=== PATIENT | male | born 1955 | race Asian ===

== ENCOUNTER 2020-08-11 08:53 | Inpatient (IN) | payer BC ==
[2020-08-11 10:08] LABS: Troponin I 4.313 ng/mL (< 0.028)
[2020-08-11] MEDS ORDERED: Iopamidol 370 76% 100 ML VIAL ONE (10:34)
[2020-08-11] MEDS ORDERED: Nitroglycerin 0.4 MG TAB (25 Tab Bottle) SL PRN (11:20)
[2020-08-11] MEDS ORDERED: Lidocaine 1% (PF) 30 ML VIAL ONE (12:25)
[2020-08-11] MEDS ORDERED: Midazolam HCl 2 mg/2 ml Vial ONE (12:56)
[2020-08-11] MEDS ORDERED: Fentanyl 100 MCG/2 ML VIAL ONE (12:56)
[2020-08-11 13:21] LABS: Troponin I 9.866 ng/mL (< 0.028)
[2020-08-11] MEDS ORDERED: Acetaminophen/Codeine 30-300mg Tablet PO PRN (13:23)
[2020-08-11] MEDS ORDERED: Sodium Chloride 0.9% 200 ML IV PRN (13:23)
[2020-08-11] MEDS ORDERED: Sodium Chloride 0.9% 500 ML IV SCH (13:30)
[2020-08-11] MEDS ORDERED: Communication Order-Pharmacy FS SCH (13:51)
[2020-08-11] MEDS: Famotidine 20 MG TAB PO SCH (20:56)
[2020-08-11 23:41] LABS: SARS-CoV-2 PCR by NAA Not Detected (NotDetected)
[2020-08-12 04:26] LABS: #Eosinphils 0.2 thou/uL (0.0-0.7); #Lymphocytes 2.9 thou/uL (1.20-3.40); #Monocytes 0.7 thou/uL (0.11-0.59); #Neutrophils 4.9 thou/uL (1.40-6.50); %Basophils 0.5 % (0.0-1.0); %Eosinophils 1.9 % (0.0-10.0); %Lymphocytes 33.7 % (21.0-51.0); %Monocytes 8.1 % (0.0-10.0); %Neutrophils 55.8 % (42.0-75.0); Hemoglobin 14.6 g/dL (14.0-18.0); Mean Corpuscular HGB CONC 36.1 g/dL (32.0-36.0); Mean Corpuscular Hemoglobin 33.8 pg (27.0-31.0); Mean Corpuscular Volume 93.8 fL (78.0-98.0); Mean Platelet Volume 8.8 fL (7.4-10.4); Platelet Count 211 thou/uL (130-400); RBC Distribution Width 11.4 % (11.5-14.5); Red Blood Cell (RBC) Count 4.31 mill/uL (4.70-6.10); White Blood Cell (WBC) Count 8.7 thou/uL (4.8-10.8)
[2020-08-12 04:51] LABS: Anion Gap 15 mmol/L (10-20); BUN (Urea Nitrogen) 12 mg/dL (8.4-25.7); Calc. Creatinine Clearance 83 mL/min (70-130); Calcium 8.4 mg/dL (7.8-10.44); Carbon Dioxide 20 mmol/L (23-31); Chloride 106 mmol/L (98-107); Cholesterol 182 mg/dl (< 200 Desired); Glucose 98 mg/dL (80-115); HDL Cholesterol 26 mg/dL (>60 Neg Risk); Sodium 137 mmol/L (136-145); Triglycerides 429 mg/dL (Less than 150)
[2020-08-12] MEDS: Aspirin 325 mg Enteric Coated Tablet PO SCH (09:35)
[2020-08-12] MEDS: Famotidine 20 MG TAB PO SCH ×2 (09:35→20:49)
[2020-08-12] MEDS: Lisinopril 20 MG TAB PO SCH (09:36)
[2020-08-12] MEDS: Enoxaparin Sodium 60 MG/0.6 ML SYRINGE SC SCH (20:49)
[2020-08-12] MEDS: Atorvastatin Calcium 40 MG TAB PO SCH (20:49)
[2020-08-13 04:50] LABS: #Eosinphils 0.2 thou/uL (0.0-0.7); #Lymphocytes 3.1 thou/uL (1.20-3.40); #Monocytes 0.9 thou/uL (0.11-0.59); #Neutrophils 4.9 thou/uL (1.40-6.50); %Basophils 0.4 % (0.0-1.0); %Eosinophils 1.8 % (0.0-10.0); %Monocytes 10.2 % (0.0-10.0); %Neutrophils 53.6 % (42.0-75.0); Hemoglobin 13.4 g/dL (14.0-18.0); Mean Corpuscular HGB CONC 36.4 g/dL (32.0-36.0); Mean Corpuscular Hemoglobin 34.3 pg (27.0-31.0); Mean Corpuscular Volume 94.2 fL (78.0-98.0); Mean Platelet Volume 8.7 fL (7.4-10.4); Platelet Count 199 thou/uL (130-400); RBC Distribution Width 11.5 % (11.5-14.5); Red Blood Cell (RBC) Count 3.92 mill/uL (4.70-6.10); White Blood Cell (WBC) Count 9.1 thou/uL (4.8-10.8)
[2020-08-13 05:10] LABS: Anion Gap 13 mmol/L (10-20); BUN (Urea Nitrogen) 11 mg/dL (8.4-25.7); Calc. Creatinine Clearance 76 mL/min (70-130); Calcium 8.4 mg/dL (7.8-10.44); Carbon Dioxide 24 mmol/L (23-31); Chloride 105 mmol/L (98-107); Glucose 105 mg/dL (80-115); Potassium 3.6 mmol/L (3.5-5.1); Sodium 138 mmol/L (136-145)
[2020-08-13] MEDS ORDERED: Sodium Chloride 0.65% Nasal 44 ML BOT EA NARE PRN (08:06)
[2020-08-13] MEDS ORDERED: Senokot S 8.6-50 MG TAB PO PRN (08:06)
[2020-08-13] MEDS ORDERED: Ondansetron ODT 4 MG TAB PO PRN (08:06)
[2020-08-13] MEDS ORDERED: Bisacodyl 5 MG TAB PO PRN (08:06)
[2020-08-13] MEDS ORDERED: Loratadine 10 MG TAB PO PRN (08:06)
[2020-08-13] MEDS ORDERED: Cepastat Lozenges 1 LOZ PO PRN (08:06)
[2020-08-13] MEDS ORDERED: GUAIFENESIN SF SOLN 200 MG/10 ML UDCUP PO PRN (08:06)
[2020-08-13] MEDS ORDERED: Calcium Carbonate 500 MG ChewTAB PO PRN (08:06)
[2020-08-13] MEDS ORDERED: Ondansetron PF 4 MG/2 ML Vial IVP PRN (08:06)
[2020-08-13] MEDS ORDERED: HYDROcodone/Acetaminophen 5/325 mg Tablet PO PRN (08:06)
[2020-08-13] MEDS ORDERED: hydrALAZINE 20 MG/ML VIAL SLOW IVP PRN (08:06)
[2020-08-13] MEDS ORDERED: Loperamide HCl 2 MG CAP PO PRN (08:06)
[2020-08-13] MEDS ORDERED: Zolpidem Tartrate 5 MG TAB PO PRN (08:06)
[2020-08-13] MEDS: Enoxaparin Sodium 60 MG/0.6 ML SYRINGE SC SCH ×2 (09:28→19:47)
[2020-08-13] MEDS: Aspirin 325 mg Enteric Coated Tablet PO SCH (09:28)
[2020-08-13] MEDS: Lisinopril 20 MG TAB PO SCH (09:29)
[2020-08-13] MEDS: Famotidine 20 MG TAB PO SCH ×2 (09:29→19:47)
[2020-08-13] MEDS: Atorvastatin Calcium 40 MG TAB PO SCH (19:47)
[2020-08-14] MEDS: Lisinopril 20 MG TAB PO SCH (04:47)
[2020-08-14] MEDS: Enoxaparin Sodium 60 MG/0.6 ML SYRINGE SC SCH (07:23)
[2020-08-14] MEDS: Aspirin 325 mg Enteric Coated Tablet PO SCH (07:23)
[2020-08-14] MEDS: Famotidine 20 MG TAB PO SCH (07:23)
[2020-08-14] MEDS ORDERED: Albumin 5% 500 ML ONE (07:23)
[2020-08-14] MEDS ORDERED: CEFAZOLIN 2 GM in Premix Bag 1 BAG IVPB SCH (07:30)
[2020-08-14] MEDS ORDERED: Bupivacaine PF 0.5% 30 ML VIAL ONE (10:00)
[2020-08-14] MEDS ORDERED: Dexamethasone 4 mg/ml Vial ONE (10:00)
[2020-08-14] MEDS ORDERED: EPINEPHrine 1 MG/ML AMP ONE (10:00)
[2020-08-14] MEDS ORDERED: Heparin 10,000 UNITS/1 ML VIAL 30,000 UNITS in Sodium Chloride 0.9% 1,000 ML FS SCH (10:15)
[2020-08-14] MEDS ORDERED: Midazolam HCl 5 mg/5 ml Vial ONE (10:18)
[2020-08-14] MEDS ORDERED: Fentanyl 100 MCG/2 ML VIAL ONE ×2 (10:18→11:45)
[2020-08-14] MEDS ORDERED: Midazolam HCl 2 mg/2 ml Vial ONE (10:18)
[2020-08-14] MEDS ORDERED: Vecuronium 10 MG VIAL ONE ×2 (10:19→11:49)
[2020-08-14] MEDS ORDERED: Dexmedetomidine 200 MCG/2 ML VIAL ONE (10:19)
[2020-08-14] MEDS ORDERED: Heparin 5,000 UNITS/ML VIAL ONE (11:49)
[2020-08-14] MEDS ORDERED: Papaverine 60 MG/2 ML VIAL ONE (11:49)
[2020-08-14] MEDS ORDERED: Lidocaine 2% PF 100 mg/5 ml Syringe ONE (11:49)
[2020-08-14] MEDS ORDERED: Potassium Chloride 60 MEQ/30 ML VIAL ONE (11:49)
[2020-08-14] MEDS ORDERED: Mannitol 12.5 GM/50 ML ONE (11:49)
[2020-08-14] MEDS ORDERED: Dexamethasone 20 MG/5 ML VIAL ONE (11:49)
[2020-08-14] MEDS ORDERED: Protamine Sulfate 250 MG/25 ML VIAL ONE (11:49)
[2020-08-14] MEDS ORDERED: Aminocaproic Acid 5 GM/20 ML VIAL ONE (11:49)
[2020-08-14] MEDS ORDERED: Ondansetron PF 4 MG/2 ML Vial ONE (11:49)
[2020-08-14] MEDS ORDERED: Nitroglycerin 50 MG/250 ML BOT ONE (11:49)
[2020-08-14] MEDS ORDERED: Heparin 30,000 units/30 ml VIAL ONE (11:49)
[2020-08-14] MEDS ORDERED: Cardioplegic Soln 1,000 ML BAG ONE (11:49)
[2020-08-14] MEDS ORDERED: Ketorolac Tromethamine 30 MG/ML VIAL ONE (11:49)
[2020-08-14] MEDS ORDERED: Thrombin 5000 UNITS/5 ML VIAL ONE (11:49)
[2020-08-14] MEDS ORDERED: Calcium Chloride 1 GM/10 ML Abboject SYRINGE ONE (11:49)
[2020-08-14] MEDS ORDERED: Sodium Bicarb 50 MEQ/50 ML Abboject 8.4% SYRINGE ONE (11:49)
[2020-08-14] MEDS ORDERED: Magnesium Sulfate 1 GM/2 ML VIAL ONE (11:49)
[2020-08-14] MEDS ORDERED: hydrALAZINE 20 MG/ML VIAL SLOW IVP PRN (14:48)
[2020-08-14] MEDS ORDERED: Hetastarch 6% 500 ML 500 ML IVPB PRN (14:48)
[2020-08-14] MEDS ORDERED: Mag-Al 1200 mg/1200 mg/30 ML UDCUP PO PRN (14:48)
[2020-08-14] MEDS ORDERED: Acetaminophen 325 MG TAB PO PRN (14:48)
[2020-08-14] MEDS ORDERED: Bisacodyl 10 MG SUPP PR PRN (14:48)
[2020-08-14] MEDS ORDERED: Morphine 2 MG/ML VIAL SLOW IVP PRN (14:48)
[2020-08-14] MEDS ORDERED: Potassium Chloride 20 MEQ/100 ML PREMIX BAG IVPB PRN (14:48)
[2020-08-14] MEDS ORDERED: Ondansetron PF 4 MG/2 ML Vial IVP PRN (14:48)
[2020-08-14] MEDS ORDERED: Nitroglycerin 50 MG/250 ML BOT 250 ML IVPB PRN (14:48)
[2020-08-14] MEDS ORDERED: Bisacodyl 5 MG TAB PO PRN (14:48)
[2020-08-14] MEDS ORDERED: Fentanyl 100 MCG/2 ML VIAL SLOW IVP PRN ×2 (14:48)
[2020-08-14] MEDS ORDERED: Guaifenesin DM 100-10/5 ML UDCUP PO PRN (14:48)
[2020-08-14] MEDS ORDERED: traMADol HCl 50 MG TAB PO PRN (14:48)
[2020-08-14] MEDS ORDERED: D5 1/2 NS w/20 mEq KCL 1,000 ML ONE (14:55)
[2020-08-14] MEDS ORDERED: Magnesium 2 GM/50 ML 2 GM in Premix Bag 1 BAG IVPB SCH (15:00)
[2020-08-14 15:02] LABS: Actual Bicarbonate (HCO3a) 20.5 mEq/L (22-28); Base Excess (BEa) -2.8 mEq/L (-2.0 to +3.0); CO2 Tension 31.4 mmHg (35.0-45.0); Calcium, Ionized (arterial) 1.07 mmol/L (1.12-1.30); Carboxyhemoglobin (COHb) 0.4 gm% (0.0-3.0); Hemoglobin (Hb) 13.8 g/dL (14.0-18.0); O2 Tension (PaO2), arterial 145.7 mmHg (> 80.0); Potassium - ABG Lab 3.74 mmol/L (3.70-5.30); pH, Arterial 7.43 (7.35-7.45)
[2020-08-14 15:04] LABS: Puncture Site Arterial Line
[2020-08-14] MEDS: D5 1/2 NS w/20 mEq KCL 1,000 ML IV SCH (15:15)
[2020-08-14 15:22] LABS: INR-International Normal Ratio 1.2; PTT 33.3 sec (22.9-36.1); Prothrombin Time 15.1 sec (12.0-14.7)
[2020-08-14 15:35] LABS: Anion Gap 15 mmol/L (10-20); BUN (Urea Nitrogen) 9 mg/dL (8.4-25.7); Calc. Creatinine Clearance 87 mL/min (70-130); Calcium 7.6 mg/dL (7.8-10.44); Carbon Dioxide 19 mmol/L (23-31); Chloride 110 mmol/L (98-107); Glucose 172 mg/dL (80-115); Potassium 4.2 mmol/L (3.5-5.1); Sodium 140 mmol/L (136-145)
[2020-08-14 16:03] LABS: Band 23 % (5-11); Hemoglobin 13.5 g/dL (14.0-18.0); Lymphocytes 7 % (21-51); MDiff Complete? YES; Mean Corpuscular HGB CONC 35.2 g/dL (32.0-36.0); Mean Corpuscular Hemoglobin 33.2 pg (27.0-31.0); Mean Corpuscular Volume 94.3 fL (78.0-98.0); Mean Platelet Volume 8.9 fL (7.4-10.4); Monocytes 5 % (0-10); Neutrophil 58 % (42-75); Platelet Count 171 thou/uL (130-400); Platelet Morphology Comment Appears Adequate; RBC Distribution Width 11.3 % (11.5-14.5); RBC Morphology Normal; Reactive Lymphocytes 7 % (0-10); Red Blood Cell (RBC) Count 4.07 mill/uL (4.70-6.10)
[2020-08-14] MEDS: Ketorolac Tromethamine 30 MG/ML VIAL IVP SCH ×2 (18:00→23:55)
[2020-08-14] MEDS: CEFAZOLIN 2 GM in Premix Bag 1 BAG IVPB SCH (20:14)
[2020-08-14] MEDS: Famotidine/PF 20 mg/2ml Vial SLOW IVP SCH (20:46)
[2020-08-14] MEDS: Norepinephrine 8 MG/0.9% NS 250 ML IVPB PRN (20:46)
[2020-08-14 20:47] LABS: Hemoglobin 11.2 g/dL (14.0-18.0)
[2020-08-14 21:01] LABS: Potassium 3.8 mmol/L (3.5-5.1)
[2020-08-14] MEDS: Atorvastatin Calcium 40 MG TAB PO SCH (21:02)
[2020-08-14 23:02] LABS: Actual Bicarbonate (HCO3a) 16.9 mEq/L (22-28); Base Excess (BEa) -4.9 mEq/L (-2.0 to +3.0); Calcium, Ionized (arterial) 1.07 mmol/L (1.12-1.30); Carboxyhemoglobin (COHb) 0.1 gm% (0.0-3.0); Hemoglobin (Hb) 11.8 g/dL (14.0-18.0); Potassium - ABG Lab 3.54 mmol/L (3.70-5.30); pH, Arterial 7.49 (7.35-7.45)
[2020-08-14 23:05] LABS: ALV-art Gradient 71.275 mmHg (0-20); CO2 Tension 22.9 mmHg (35.0-45.0); Puncture Site Arterial Line
[2020-08-15] MEDS: CEFAZOLIN 2 GM in Premix Bag 1 BAG IVPB SCH ×2 (03:32→11:36)
[2020-08-15] MEDS: traMADol HCl 50 MG TAB PO PRN (03:32)
[2020-08-15 03:45] LABS: #Lymphocytes 1.1 thou/uL (1.20-3.40); #Monocytes 1.5 thou/uL (0.11-0.59); #Neutrophils 12.6 thou/uL (1.40-6.50); %Lymphocytes 7.2 % (21.0-51.0); %Monocytes 9.9 % (0.0-10.0); %Neutrophils 82.9 % (42.0-75.0); Hemoglobin 10.7 g/dL (14.0-18.0); Mean Corpuscular HGB CONC 34.9 g/dL (32.0-36.0); Mean Corpuscular Hemoglobin 32.8 pg (27.0-31.0); Platelet Count 156 thou/uL (130-400); RBC Distribution Width 11.3 % (11.5-14.5); Red Blood Cell (RBC) Count 3.28 mill/uL (4.70-6.10); White Blood Cell (WBC) Count 15.2 thou/uL (4.8-10.8)
[2020-08-15 04:09] LABS: Anion Gap 11 mmol/L (10-20); BUN (Urea Nitrogen) 12 mg/dL (8.4-25.7); Calc. Creatinine Clearance 83 mL/min (70-130); Calcium 7.7 mg/dL (7.8-10.44); Carbon Dioxide 24 mmol/L (23-31); Chloride 110 mmol/L (98-107); Glucose 158 mg/dL (80-115); Potassium 3.6 mmol/L (3.5-5.1); Sodium 141 mmol/L (136-145)
[2020-08-15] MEDS: Ketorolac Tromethamine 30 MG/ML VIAL IVP SCH ×4 (06:11→23:20)
[2020-08-15] MEDS: Famotidine/PF 20 mg/2ml Vial SLOW IVP SCH ×2 (09:09→20:20)
[2020-08-15] MEDS: Magnesium 2 GM/50 ML 2 GM in Premix Bag 1 BAG IVPB SCH (09:09)
[2020-08-15] MEDS: Aspirin 325 MG TAB PO SCH (09:09)
[2020-08-15] MEDS: Norepinephrine 8 MG/0.9% NS 250 ML IVPB PRN (11:39)
[2020-08-15] MEDS: D5 1/2 NS w/20 mEq KCL 1,000 ML IV SCH (18:01)
[2020-08-15] MEDS: Atorvastatin Calcium 40 MG TAB PO SCH (20:20)
[2020-08-16 03:31] LABS: #Monocytes 1.3 thou/uL (0.11-0.59); #Neutrophils 7.4 thou/uL (1.40-6.50); %Basophils 0.1 % (0.0-1.0); %Eosinophils 0.1 % (0.0-10.0); %Lymphocytes 25.7 % (21.0-51.0); %Monocytes 10.9 % (0.0-10.0); %Neutrophils 63.2 % (42.0-75.0); Hemoglobin 9.3 g/dL (14.0-18.0); Mean Corpuscular HGB CONC 34.8 g/dL (32.0-36.0); Mean Corpuscular Volume 94.8 fL (78.0-98.0); Mean Platelet Volume 8.9 fL (7.4-10.4); Platelet Count 148 thou/uL (130-400); RBC Distribution Width 11.3 % (11.5-14.5); Red Blood Cell (RBC) Count 2.81 mill/uL (4.70-6.10); White Blood Cell (WBC) Count 11.7 thou/uL (4.8-10.8)
[2020-08-16 03:54] LABS: Anion Gap 11 mmol/L (10-20); BUN (Urea Nitrogen) 17 mg/dL (8.4-25.7); Calc. Creatinine Clearance 87 mL/min (70-130); Calcium 7.5 mg/dL (7.8-10.44); Carbon Dioxide 24 mmol/L (23-31); Chloride 108 mmol/L (98-107); Glucose 136 mg/dL (80-115); Potassium 3.5 mmol/L (3.5-5.1); Sodium 139 mmol/L (136-145)
[2020-08-16] MEDS: Ketorolac Tromethamine 30 MG/ML VIAL IVP SCH ×3 (05:35→18:17)
[2020-08-16] MEDS ORDERED: Hetastarch 6% 500 ML 500 ML IVPB SCH (06:00)
[2020-08-16 06:46] VITALS: BMI 25.2
[2020-08-16] MEDS: Magnesium 2 GM/50 ML 2 GM in Premix Bag 1 BAG IVPB SCH (08:23)
[2020-08-16] MEDS: Famotidine/PF 20 mg/2ml Vial SLOW IVP SCH (08:24)
[2020-08-16] MEDS: Aspirin 325 MG TAB PO SCH (08:24)
[2020-08-16] MEDS ORDERED: Zolpidem Tartrate 5 MG TAB PO PRN (15:04)
[2020-08-16] MEDS ORDERED: Milk Of Magnesia 30 ML UDCUP PO PRN (15:04)
[2020-08-16] MEDS ORDERED: Bisacodyl 5 MG TAB PO PRN (15:04)
[2020-08-16] MEDS ORDERED: diphenhydrAMINE 25 MG CAP PO PRN (15:04)
[2020-08-16] MEDS ORDERED: Mag-Al 1200 mg/1200 mg/30 ML UDCUP PO PRN (15:04)
[2020-08-16] MEDS ORDERED: Mineral Oil ENEMA PR PRN (15:04)
[2020-08-16] MEDS ORDERED: Nitroglycerin 0.4 MG TAB (25 Tab Bottle) SL PRN (15:04)
[2020-08-16] MEDS ORDERED: Bisacodyl 10 MG SUPP PR PRN (15:04)
[2020-08-16] MEDS ORDERED: Guaifenesin DM 100-10/5 ML UDCUP PO PRN (15:04)
[2020-08-16] MEDS: Famotidine 20 MG TAB PO SCH (20:33)
[2020-08-16] MEDS: traMADol HCl 50 MG TAB PO PRN (20:33)
[2020-08-16] MEDS: Atorvastatin Calcium 40 MG TAB PO SCH (20:33)
[2020-08-17] MEDS: Ketorolac Tromethamine 30 MG/ML VIAL IVP SCH ×5 (00:45→19:06)
[2020-08-17] MEDS: Aspirin 325 MG TAB PO SCH (08:55)
[2020-08-17] MEDS: Famotidine 20 MG TAB PO SCH ×2 (08:56→20:37)
[2020-08-17 13:01] LABS: #Eosinphils 0.2 thou/uL (0.0-0.7); #Lymphocytes 2.1 thou/uL (1.20-3.40); %Basophils 0.1 % (0.0-1.0); %Eosinophils 1.7 % (0.0-10.0); %Lymphocytes 22.5 % (21.0-51.0); %Monocytes 10.6 % (0.0-10.0); %Neutrophils 65.1 % (42.0-75.0); Hemoglobin 9.9 g/dL (14.0-18.0); Mean Corpuscular HGB CONC 34.3 g/dL (32.0-36.0); Mean Corpuscular Hemoglobin 33.3 pg (27.0-31.0); Mean Corpuscular Volume 97.1 fL (78.0-98.0); Mean Platelet Volume 8.9 fL (7.4-10.4); Platelet Count 175 thou/uL (130-400); RBC Distribution Width 11.6 % (11.5-14.5); Red Blood Cell (RBC) Count 2.97 mill/uL (4.70-6.10); White Blood Cell (WBC) Count 9.3 thou/uL (4.8-10.8)
[2020-08-17 13:16] LABS: Anion Gap 10 mmol/L (10-20); BUN (Urea Nitrogen) 15 mg/dL (8.4-25.7); Calc. Creatinine Clearance 91 mL/min (70-130); Calcium 8.1 mg/dL (7.8-10.44); Carbon Dioxide 24 mmol/L (23-31); Chloride 107 mmol/L (98-107); Glucose 147 mg/dL (80-115); Potassium 3.6 mmol/L (3.5-5.1); Sodium 137 mmol/L (136-145)
[2020-08-17] MEDS: traMADol HCl 50 MG TAB PO PRN (18:07)
[2020-08-17] MEDS: Carvedilol 3.125 MG TAB PO SCH ×2 (18:08→19:07)
[2020-08-17] MEDS: Atorvastatin Calcium 40 MG TAB PO SCH (20:37)
[2020-08-18 04:50] LABS: #Eosinphils 0.3 thou/uL (0.0-0.7); #Lymphocytes 2.2 thou/uL (1.20-3.40); #Monocytes 0.9 thou/uL (0.11-0.59); #Neutrophils 5.7 thou/uL (1.40-6.50); %Basophils 0.3 % (0.0-1.0); %Eosinophils 3.3 % (0.0-10.0); %Lymphocytes 24.1 % (21.0-51.0); %Monocytes 9.6 % (0.0-10.0); %Neutrophils 62.7 % (42.0-75.0); Hemoglobin 9.9 g/dL (14.0-18.0); Mean Corpuscular HGB CONC 34.1 g/dL (32.0-36.0); Mean Corpuscular Hemoglobin 32.6 pg (27.0-31.0); Mean Corpuscular Volume 95.5 fL (78.0-98.0); Mean Platelet Volume 8.7 fL (7.4-10.4); Platelet Count 203 thou/uL (130-400); RBC Distribution Width 11.3 % (11.5-14.5); Red Blood Cell (RBC) Count 3.03 mill/uL (4.70-6.10); White Blood Cell (WBC) Count 9.1 thou/uL (4.8-10.8)
[2020-08-18 05:15] LABS: Anion Gap 8 mmol/L (10-20); BUN (Urea Nitrogen) 14 mg/dL (8.4-25.7); Calc. Creatinine Clearance 91 mL/min (70-130); Calcium 8.2 mg/dL (7.8-10.44); Carbon Dioxide 28 mmol/L (23-31); Chloride 106 mmol/L (98-107); Glucose 122 mg/dL (80-115); Potassium 3.7 mmol/L (3.5-5.1); Sodium 138 mmol/L (136-145)
[2020-08-18] MEDS: Aspirin 325 MG TAB PO SCH (08:10)
[2020-08-18] MEDS: Carvedilol 3.125 MG TAB PO SCH ×2 (08:10→16:33)
[2020-08-18] MEDS: Famotidine 20 MG TAB PO SCH (08:11)
[2020-08-18] MEDS ORDERED: Lisinopril 2.5 MG TAB PO SCH (09:00)
[2020-08-18 15:38] VITALS: BP 119/67; TEMP 97.4
== END 2020-08-18 17:10 | DRG 234 ==
LOC: SUATTDRO 08:53 → ERS 08:53 → 2NO 09:55 → CCU 08-14 13:47 → 2NO 08-17 22:05
PROVIDERS: ADMIT Internal Medicine; ATTEND Internal Medicine
PROC: 4A023N7 Measurement of Cardiac Sampling and Pressure, Left Heart, Percutaneous Approach (ICD-10-PCS; 2020-08-11)
PROC: B2111ZZ Fluoroscopy of Multiple Coronary Arteries using Low Osmolar Contrast (ICD-10-PCS; 2020-08-11)
PROC: B2151ZZ Fluoroscopy of Left Heart using Low Osmolar Contrast (ICD-10-PCS; 2020-08-11)
PROC: 021009W Bypass Coronary Artery, One Artery from Aorta with Autologous Venous Tissue, Open Approach (ICD-10-PCS; principal; 2020-08-14)
PROC: 02100Z9 Bypass Coronary Artery, One Artery from Left Internal Mammary, Open Approach (ICD-10-PCS; 2020-08-14)
PROC: 06BQ0ZZ Excision of Left Saphenous Vein, Open Approach (ICD-10-PCS; 2020-08-14)
PROC: 5A1221Z Performance of Cardiac Output, Continuous (ICD-10-PCS; 2020-08-14)
DX: I21.4 Non-ST elevation (NSTEMI) myocardial infarction (principal); I10 Essential (primary) hypertension; I25.110 Atherosclerotic heart disease of native coronary artery with unstable angina pectoris; E78.5 Hyperlipidemia, unspecified
CPT/HCPCS: 36415; 36416; 71045; 80048; 80061; 82805; 85025; 85610; 85730; 86850; 86900; 86901; 87635; 93005; 93010; 93458; 93798; 94002; 94150; 97139; 99152; C1760; J0171; J0690; J1100; J1642; J1644; J1650; J1885; J2001; J2150; J2250; J2405; J2440; J2720; J3010; J3370; J3475; J3480; P9045; Q9967; S0017; S0020; S0028; U0003; U0005